=== PATIENT | male | born 1955 | race Caucasian/White ===

== ENCOUNTER 2017-08-07 10:34 | Emergency (ER) | payer OTHER ==
[~2017-08-07] VITALS: Ht 180.3 cm; Wt 135.0 kg
[2017-08-07 10:37] VITALS: BP 202/126; PULSE 99; RESP 16; TEMP 98.5; O2SAT 96
[2017-08-07] MEDS ORDERED: [UNRECOGNIZED DRUG - OTHER] (11:47)
[2017-08-07] MEDS ORDERED: [UNRECOGNIZED DRUG - OTHER] (11:47)
--- NOTE | 2017-08-07 11:52 | PD ---
HPI Chief Complaint: Edema Time Seen by Provider: 11:49 Travel History International Travel<30 days: No Contact w/Intl Traveler<30days: No Traveled to known affect area: No History of Present Illness HPI C/O 3 DAYS OF REDNESS AND SWELLING TO LEFT LEG , PRESENTED TO [facility] WHICH DOES NOT HAVE ANY ULTRASOUND CAPABILITY TO R/O DVT.... PATIENT DENIES ANY ALLEVIATING/AGGRAVATING FACTORS,.....DENIES ASSOC FACTORS SUCH FEVER/COUGH/ARRIAGA /CP/ABDPAIN/. ALL:PCN, MORPHINE PMHX: HTN, GB REMOVED, PFSH Past Medical History Cardiovascular Problems: Yes (HTN) Hypertension: Yes Sleep Apnea: Yes Past Surgical History Cholecystectomy: Yes Social History Alcohol Use: Yes (RARELY) Tobacco Use: No Substance Use: No Allergies-Medications (Allergen,Severity, Reaction): Coded Allergies: morphine (Verified Allergy, Unknown, 08/07/17) penicillin V (Verified Allergy, Unknown, 08/07/17) Reported Meds & Prescriptions Reported Meds & Active Scripts Active Ultram (Tramadol HCl) 50 Mg Tab 50 Mg PO Q6H PRN Bactrim DS (Sulfamethoxazole-Trimethoprim) 800-160 Mg Tab 1 Tab PO BID Reported [bravecto] Unknown Dose [inverheart] Review of Systems Except as stated in HPI: all other systems reviewed are Neg General / Constitutional: No: Fever Eyes: No: Visual changes HENT: No: Headaches Cardiovascular: No: Chest Pain or Discomfort Respiratory: No: Shortness of Breath Gastrointestinal: No: Abdominal Pain Genitourinary: No: Dysuria Musculoskeletal: No: Pain Skin: Positive Lesions Neurologic: No: Weakness Psychiatric: No: Depression Endocrine: No: Polydipsia Hematologic/Lymphatic: No: Easy Bruising Physical Exam Narrative GENERAL: SKIN: Warm and dry. HEAD: Atraumatic. Normocephalic. EYES: Pupils equal and round. No scleral icterus. No injection or drainage. ENT: No nasal bleeding or discharge. Mucous membranes pink and moist. NECK: Trachea midline. No JVD. CARDIOVASCULAR: Regular rate and rhythm. RESPIRATORY: No accessory muscle use. Clear to auscultation. Breath sounds equal bilaterally. GASTROINTESTINAL: Abdomen soft, non-tender, nondistended. Hepatic and splenic margins not palpable. MUSCULOSKELETAL: Extremities without clubbing, cyanosis, or edema. No obvious deformities. LLE ERYTHEMA/WARMTH/NO STREAKING, TTPALPATION BUT WITHOUT CREPITUS. NEUROLOGICAL: Awake and alert. No obvious cranial nerve deficits. Motor grossly within normal limits. Five out of 5 muscle strength in the arms and legs. Normal speech. PSYCHIATRIC: Appropriate mood and affect; insight and judgment normal. Data Data Last Documented VS Vital Signs Date Time Temp Pulse Resp B/P (MAP) Pulse Ox O2 Delivery O2 Flow Rate FiO2 08/07/17 10:37 98.5 99 16 202/126 (151) 96 Orders Orders Us Leg Venous Doppler (08/07/17 11:09) Complete Blood Count With Diff (08/07/17 11:49) Basic Metabolic Panel (Bmp) (08/07/17 11:49) Blood Culture (08/07/17 11:49) Prothrombin Time / Inr (Pt) (08/07/17 12:02) Act Partial Throm Time (Ptt) (08/07/17 12:02) Clindamycin Inj (Cleocin Inj) (08/07/17 12:45) Labs Laboratory Tests Test 08/07/17 12:00 White Blood Count 10.2 TH/MM3 Red Blood Count 4.97 MIL/MM3 Hemoglobin 15.9 GM/DL Hematocrit 46.4 % Mean Corpuscular Volume 93.4 FL Mean Corpuscular Hemoglobin 32.1 PG Mean Corpuscular Hemoglobin Concent 34.3 % Red Cell Distribution Width 13.1 % Platelet Count 251 TH/MM3 Mean Platelet Volume 8.1 FL Neutrophils (%) (Auto) 75.6 % Lymphocytes (%) (Auto) 13.0 % Monocytes (%) (Auto) 10.3 % Eosinophils (%) (Auto) 0.8 % Basophils (%) (Auto) 0.3 % Neutrophils # (Auto) 7.7 TH/MM3 Lymphocytes # (Auto) 1.3 TH/MM3 Monocytes # (Auto) 1.0 TH/MM3 Eosinophils # (Auto) 0.1 TH/MM3 Basophils # (Auto) 0.0 TH/MM3 CBC Comment DIFF FINAL Differential Comment Prothrombin Time 10.3 SEC Prothromb Time International Ratio 1.0 RATIO Activated Partial Thromboplast Time 32.7 SEC Blood Urea Nitrogen 16 MG/DL Creatinine 1.26 MG/DL Random Glucose 120 MG/DL Calcium Level 8.8 MG/DL Sodium Level 136 MEQ/L Potassium Level 3.4 MEQ/L Chloride Level 101 MEQ/L Carbon Dioxide Level 27.0 MEQ/L Anion Gap 8 MEQ/L Estimat Glomerular Filtration Rate 58 ML/MIN MDM Medical Decision Making Medical Screen Exam Complete: Yes Emergency Medical Condition: Yes Medical Record Reviewed: Yes Differential Diagnosis CELLULITIS V DVT V LYMPHANGITIS V BAKERS CYST Narrative Course NO MAJOR LEFT SHIFT OR LEUKOCYTOSIS, ALSO ULTRASOUND NEG FOR DVT Diagnosis Primary Impression: CELLULITIS LLE Patient Instructions: Cellulitis (ED), General Instructions Scripts Tramadol (Ultram) 50 Mg Tab 50 MG PO Q6H Y for PAIN, #14 TAB 0 Refills Prov: Familia Pretty MD 08/07/17 Sulfamethoxazole-Trimethoprim (Bactrim DS) 800-160 Mg Tab 1 TAB PO BID for Infection, #20 TAB 0 Refills Prov: Familia Pretty MD 08/07/17 Disposition: 01 DISCHARGE HOME Condition: Stable Familia Pretty MD Aug 07, 2017 11:52
[2017-08-07 12:36] LABS: AUTOMATED NEUTROPHIL # 7.7 TH/MM3 (1.8-7.7); BASOPHIL % 0.3 % (0.0-2.0); EOSINOPHIL # 0.1 TH/MM3 (0-0.4); EOSINOPHIL % 0.8 % (0.0-4.0); HEMATOCRIT 46.4 % (39.0-51.0); HEMOGLOBIN 15.9 GM/DL (13.0-17.0); LYMPHOCYTE # 1.3 TH/MM3 (1.0-4.8); MEAN CELL VOLUME 93.4 FL (80.0-100.0); MEAN CORPUSCULAR HEMOGLOBIN 32.1 PG (27.0-34.0); MEAN CORPUSCULAR HGB CONC 34.3 % (32.0-36.0); MEAN PLATELET VOLUME 8.1 FL (7.0-11.0); MONO % 10.3 % (0.0-8.0); NEUT % 75.6 % (16.0-70.0); PLATELET COUNT 251 TH/MM3 (150-450); RED BLOOD COUNT 4.97 MIL/MM3 (4.50-5.90); RED CELL DISTRIBUTION WIDTH 13.1 % (11.6-17.2); WHITE BLOOD COUNT 10.2 TH/MM3 (4.0-11.0)
--- NOTE | 2017-08-07 12:39 | RADRPT ---
EXAM DATE/TIME: 08/07/2017 12:19 [facility] COMPARISON: No previous studies available for comparison. INDICATIONS : Cellulitis, left leg. MEDICAL HISTORY : Hypertension. SURGICAL HISTORY : Cholecystectomy. ENCOUNTER: Initial ACUITY: 4 - 6 days PAIN SCORE: 4/10 LOCATION: Left leg. TECHNIQUE: Venous ultrasound of the leg was performed from the inguinal ligament to the proximal calf. Real-anthony e, color Doppler and spectral tracing, compression and augmentation techniques were used. FINDINGS: There is normal compressibility of the deep venous system from the inguinal region to the proximal ca lf. No echogenic clot is seen in the lumen of the common femoral, femoral, popliteal, and posterior tibial veins. There is a normal response of the venous system to proximal and distal augmentation an d respiration. CONCLUSION: Negative for deep venous thrombosis. David Bee MD FACR on August 07, 2017 at 12:36 Board Certified Radiologist. This report was verified electronically.
[2017-08-07 12:44] LABS: PROTHROMBIN TIME - PATIENT 10.3 SEC (9.8-11.6)
[2017-08-07] MEDS ORDERED: TRAM50 PO (12:44)
[2017-08-07] MEDS ORDERED: BACT800T5 PO (12:44)
[2017-08-07] MEDS ORDERED: CLINDAMYCIN INJ 900 MG in SODIUM CHLORIDE 0.9% INJ 100 ML IV ONE (12:45)
[2017-08-07 13:01] LABS: CALCIUM 8.8 MG/DL (8.5-10.1); CREATININE 1.26 MG/DL (0.60-1.30)
[2017-08-07] MEDS ORDERED: CLINDAMYCIN 900 MG/NS PREMIX 50 ML IV ONE (13:30)
== END 2017-08-07 14:17 | disposition home or self-care (01) ==
LOC: NEPD 10:34
DX: L03.116 Cellulitis of left lower limb (principal); I10 Essential (primary) hypertension; Z88.5 Allergy status to narcotic agent; Z88.0 Allergy status to penicillin
CPT/HCPCS: 80048; 85025; 85610; 85730; 87040; 93971; 96374